=== PATIENT | female | born 1995 | race Caucasian/White ===

== ENCOUNTER 2024-11-23 02:43 | Day surgery (SDC) | payer OTHER, SELFPAY ==
[2024-11-10 13:49] VITALS: BMI 28.1
--- OUTSIDE RECORDS SUMMARY | 2024-11-23 02:46 | XMS_ITS | Clinical Summary ---
Author Organization [facility] [address] Address [address] [place] [address] Phone Care Team Providers Care Housekeeper/Laundry Assistant Name Role Phone Christina Wright PATROL DRIVER Primary Care Provider [phone] Allergies No known active allergies Medications clindamycin (CLINDAGEL) 1 % gel APPLY AA BID 4 9 Active norgestimate-ethi nyl estradioL (ORTHO-CYCLEN) 0.25-35 mg-mcg per tabletIndications :Oral contraceptive pill surveillance Take 1 tablet by mouth daily 84 tablet 4 3 Active Additional Information Patient not taking.Reported on 09/15/2023 metroNIDAZOLE (METROGEL) 0.75 % (37.5mg/5 gram) vaginal gelIndications:Ba cterial Vaginosis APPLY VAGINALLY EVERY NIGHT FOR 5 NIGHTS 70 g 3 Active Additional Information Patient not taking.Reported on 09/15/2023 Active Problems Problem Noted Date Diagnosed Date Obesity (BMI 30-39.9) 02/13/2018 Dysmenorrhea 02/11/2013 Surgical History Surgery Date Site/Laterality Comments SOFT TISSUE CYST EXCISION 04/14/2009 - 04/13/2010 Cheek Family History Medical History Relation Name Comments Heart attack Maternal Grandfather Hypertension Maternal Grandfather Breast cancer Maternal Grandmother Breast cancer Other 1 Breast Cancer - (Added by TW Conv) Heart disease Other 2 Heart Disease - (Added by TW Conv) Hypertension Other 3 Hypertension - (Added by TW Conv) Stroke Other 4 Stroke Syndrome - (Added by TW Conv) Relation Name Status Comments Maternal Grandfather Maternal Grandmother Other 1 Other 2 Other 3 Other 4 Social History Tobacco Use Types Packs/Day Years Used Date Smoking Tobacco: Never Smokeless Tobacco: Never Tobacco Cessation:Counseling Given: Not Answered Alcohol Use Standard Drinks/Week Comments Yes 5 (1 standard drink = 0.6 oz pur e alcohol) Occasionally Comments No Sex and Gender Information Value Date Recorded Sex Assigned at Not on file 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 Gender Identity Not on file Sexual Orientation Not on file 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 Not on file Not on file No t on file Obstetrics History Para Term AB IAB SAB Ectopic Multiple Livin g Live Births 0 0 0 0 0 0 0 0 0 0 0 Last Filed Vital Signs Vital Sign Reading Time Taken Comments Blood Pressure 121/73 11/13/2023 3:32 PM CDT Pulse 78 11/13/2023 3:32 PM CDT Temperature 36.6 C (97.8 F) 11/13/2023 3:32 PM CDT Respiratory Rate 20 11/13/2023 3:32 PM CDT Oxygen Saturation 98% 11/13/2023 3:32 PM CDT Inhaled Oxygen Concentration - - Weight 86.2 kg (190 lb) 11/13/2023 3:32 PM CDT Height 175.3 cm (5' 9) 11/13/2023 3:32 PM CDT Body Mass Index 28.06 11/13/2023 3:32 PM CDT Plan of Treatment Health Maintenance Due Date Last Done Comments Depression Screening 1995 Hepatitis C Screening 1995 DTaP/Tdap/Td Vaccine (1 - Tdap) 2008 Varicella Vaccines (1 of 2 - 13+ 2-dose series) 2010 Hepatitis B Screening 2015 Covid-19 Vaccine ( season) 2023 11/28/2020, 11/07/2020 HPV Vaccines (1 - 3-dose SCDM series) 2024 Cervical Cancer Screening 09/14/20242023, 04/27/2021, 03/15/2019 Regular Well Visit/Exam 18-64 09/14/2024 09/15/2023, 07/09/2022, 04/27/2021, Additional history exists Influenza Vaccine (#1) 2024 Pneumococcal vaccine <65 Aged Out No longer eligible based on patient's age to complete this topic Procedures Procedure Name Priority Date/Time Associated Diagnosis Comments PAP WITH REFLEX TO HIGH RISK HPV Routine 09/15/2023 11:01 AM CDT Screening for malignant neoplasm of the cervix from Last 3 Months or Most Recently Relevant to Health Maintenance Results * Pap with reflex to High Risk HPV and Genotyping (Cytology Component) (09/15/2023 11:01 AM CDT) Thin prep (Pap test) 09/15/2023 11:01 AM CDT 09/15/2023 11:01 AM CDT Narrative PATHOLOGY CH - 09/17/2023 12:28 PM CDT [facility] Department of Pathology [address] [place], [place] [id number] Final Report Note to Patients: This report may contain a detailed description of human tissue sent by a health care provider to the laboratory for pathologic evaluation. The content of this report is essential for diagnosis and may provide important critical findings. This information may be unfamiliar to patients to review without a medical professional present. It is advised that the patient review this report in the presence of a health care provider who can answer questions and explain the details. Patient Name: JUANITA LORENZO Address: [address] [place] [address] Gender: F : 1995 (Age: 28) Service: Location: [facility] : [id number] [place] [facility] #: [id number] Patient Type: CRITICAL ACCESS HOSPITAL SPECIMEN Taken: 09/15/2023 Received: 09/15/2023 Accessioned:: 09/16/2023 Reported: 09/17/2023 Physician(s): MD Bushra Paul MD Diagnosis: SOURCE OF SPECIMEN Imaged Thinprep Pap Test w/ Reflex HPV - Explosive Ordnance Specialist Cytologic Material: STATEMENT OF ADEQUACY - Specimen satisfactory for interpretation; endocervical/transformation zone component absent or insufficient GENERAL CATEGORIZATION: - Negative for intraepithelial lesion or malignancy ALTON Loyola(ASCP) Report Electronically Reviewed and Signed Out By ALTON Loyola(ASCP) 09/17/2023 12:28:54Specimen(s) Received: A: Imaged Thinprep Pap Test w/ Reflex HPV - Explosive Ordnance Specialist Cytologic Material Clinical History: Last Menstrual Period: 09/01/23 The Pap test is a screening test used to aid in the detection of cervical cancer and its precursors. It should not be the sole means by which malignant and premalignant lesions are diagnosed. Both false negative and false positive results may occur. It also has poor sensitivity for the detection of endometrial lesions and should not be used to evaluate suspected endometrial abnormalities. For these reasons it is most important to obtain Pap tests at regular intervals. The performance characteristics of some immunohistochemical stains, fluorescence in-situ hybridization tests and immunophenotyping by flow cytometry cited in this report (if any) were determined by the Surgical Pathology Department at [facility] as part of an ongoing quality assurance auditor program and in compliance with federally mandated regulations drawn from the Clinical Laboratory Improvement Act of 1988 (CLIA '88). Some of these tests rely on the use of analyte specific reagents and are subject to specific labeling requirements by the US Food and Drug Administration. Such diagnostic tests may only be performed in a facility that is certified by the Department of Health and Human Services as a high complexity laboratory under CLIA '88. The FDA has determined that such clearance or approval is not necessary. This test is used for clinical purposes. It should not be regarded as investigational or for research. Nevertheless, federal rules concerning the medical use of analyte specific reagents require that the following disclaimer be attached to the report: This test was developed and its performance characteristics determined by the Surgical Pathology Department [facility]. It has not been cleared or approved by the U. S. Food and Drug Administration. Bushra Anaya MD LAB CYTOLOGY ORDERABL ES Final Result PATHOLOGY [address] [place] [address] from Last 3 Months or Most Recently Relevant to Health Maintenance Insurance [employer] OPEN ACCESS CIG ALLEGIANCE Care Teams Housekeeper/Laundry Assistant Relationship Specialty Start Date End Date Christina Wright NP PCP - General Electrician Elevator Maintenance 08/02/24
--- OUTSIDE RECORDS SUMMARY | 2024-11-23 02:46 | XMS_ITS | Clinical Summary ---
Author Organization [facility] [email or web address] [place] Address [address] [place] [address] Care Team Providers Care Accounts Manager Name Role Phone Unavailable Primary Care Provider Unavailabl e Allergies No known active allergies Medications hydrocortisone (PROCTOZONE-HC) 2.5 % cream with perineal applicatorIndica tions:Rectal bleeding Insert by rectum 3 times daily as needed for Hemorrhoids . 30 Gram 07/13/2024 Active Active Problems Problem Noted Date Diagnosed Date Constipation 09/11/2023 Rectal bleeding 09/11/2023 Fear of needles 09/11/2023 Overview (09/11/2023): declines health screenings. Encounters Date Type Department Care Team Description 11/17/2024 External Device Data [facility] ABSTRACTION Provider, Abstract 11/16/2024 External Device Data [facility] ABSTRACTION Provider, Abstract 10/27/2024 External Device Data [facility] ABSTRACTION Provider, Abstract 10/26/2024 External Device Data [facility]STRACTION Provider, Abstract 10/12/2024 External Device Data [facility]STRACTION Provider, Abstract from Last 3 Months Immunizations Immunization Administration Dates Next Due (PFIZER)(12 YR UP) COVID-19 VACCINE - EMERGENCY USE AUTHORIZATION, MRNA, [id number](PF) 30 MCG/0.3 ML IM SUSP 11/28/2020,11/07/2020 Family History Medical History Relation Name Comments No Known Problems Father Parkinson's Disease Maternal Grandfather Breast Cancer Maternal Grandmother Anemia Mother Diabetes Mother Cancer Paternal Grandfather COPD Paternal Grandmother No Known Problems Sister Relation Name Status Comments Father Alive Maternal Grandfather Maternal Grandmother Alive Mother Alive Paternal Grandfather Paternal Grandmother Alive Sister Alive Social History Tobacco Use Types Packs/Day Years Used Date Smoking Tobacco: Never Smokeless Tobacco: Never Alcohol Use Standard Drinks/Week Comments Yes 0 (1 standard drink = 0.6 oz pur e alcohol) occassionally Comments No Sex and Gender Information Value Date Recorded Sex Assigned at Not on file Legal Sex Female 10:28 AM CDT Gender Identity Not on file Sexual Orientation Not on file Last Filed Vital Signs Vital Sign Reading Time Taken Comments Blood Pressure 124/78 07/13/2024 1:24 PM CDT Pulse 57 07/13/2024 1:24 PM CDT Temperature 36.7 C (98 F) 07/13/2024 1:24 PM CDT Respiratory Rate 16 07/13/2024 1:24 PM CDT Oxygen Saturation 98% 07/13/2024 1:24 PM CDT Inhaled Oxygen Concentration - - Weight 88 kg (194 lb) 07/13/2024 1:24 PM CDT Height 172.7 cm (5' 8) 07/13/2024 1:24 PM CDT Body Mass Index 29.5 07/13/2024 1:24 PM CDT Plan of Treatment Health Maintenance Due Date Last Done Comments HPV VACCINES (1 - 3-dose series) 2012 DTAP/TDAP/TD VACCINES (1 - Tdap) 2016 HEPATITIS B VACCINES (1 of 3 - 19+ 3-dose series) 2016 HPV/Cotest (21-29) 2018 COVID-19 Vaccine ( - 2023-2 5 season) 2023 11/28/2020, 11/07/2020 INFLUENZA VACCINE (#1) 2024 12/28/2020 CERVICAL CANCER SCREENING 09/14/2026 PAP SMEAR 09/14/2026 09/15/2023, 04/2020 (Previously completed) [place] [address] [place] [address] OPEN ACCESS HMO [facility] OPEN ACCESS HMO
--- OUTSIDE RECORDS SUMMARY | 2024-11-23 02:46 | XMS_ITS | Patient Health Record ---
Author Organization [facility] [place] ([address]) Address [address] [place] [address] Care Team Providers Care Stone Repairer Name Role Phone Dr. Patsy Zavala Primary Care Provider Riky Álvarez Unavailable [phone] Reason For Referral No Information Medications Medication SIG (Take, Route, Fr equency, Duration) Notes Start Date End Date Status Auvi-Q 0.3 MG/0.3ML 0.3 mg intramuscular ly once; Duration: 1 dose(s) 11/03/2017 Active DOXYCYCLINE hyclate 100 mg 1 cap(s) orally 2 times a day Active AUVI -Q 0.3 mg 0.3 mg intramuscular ly once; Duration: 1 dose(s) 11/03/2017 Active Doxycycline Hyclate 100 MG 1 cap(s) orally 2 times a day Active Social History Tobacco Use: Social History Observation Description Date Details (start date - stop date) Never Smoker NA - NA Smoking Smart Form: Question Answer Notes Are you a: never smoker Problems Problem Type SNOMED Code ICD Code Onset Dates Problem Status W/U Status Risk Notes Problem Idiopathic urticaria (19603414) Idiopathic urticaria (L50.1) Active confirmed Plan Of Treatment No Information Insurance Providers Payer Name Payer Address Payer Phone Subscriber Number Group Number Insured Name Patient Relationship to Insured Coverage Start Date Coverage End Date [facility] [address] [address] [place] [address] [id number] Frida Sam Child - Insured has Financial Responsibility
--- OUTSIDE RECORDS SUMMARY | 2024-11-23 02:47 | XMS_ITS ---
Author Organization [facility] [place] ([address]) Address [address] [place] [address] Care Team Providers Care Chief Wellness Officer Name Role Phone Dr. Patsy Zavala Primary Care Provider Riky Álvarez Unavailable [phone] [facility], Provider Unavailable Unavailab le [facility] Conversion Encounter Medications Medication SIG (Take, Route, Fr equency, Duration) Notes Start Date End Date Status Auvi-Q 0.3 MG/0.3ML 0.3 mg intramuscular ly once; Duration: 1 dose(s) 11/03/2017 Active Doxycycline Hyclate 100 MG 1 cap(s) orally 2 times a day Active Encounters Encounter Location Date Provider Diagnosis [address] [address] 09/27/2023 Provider [facility] Idiopathic urticaria L50.1 Assessments Encounter Date Diagnosis (ICD Code) Assessment Notes Treatment Notes Treatment Clinical Notes Section Notes 09/27/2023 Idiopathic urticaria (ICD-10 - L50.1) Plan Of Treatment Medication Medication Name Sig Start Date Stop Date Notes Auvi-Q 0.3 MG/0.3ML 0.3 mg intramuscular ly once; Duration: 1 dose(s) 11/03/2017 Progress Notes * Juanita LORENZODOB:09/1995 (29 yo F)Acc No.[id number]:09/27/2023 Patient: Juanita LAINEZ Provider: Katerine Lam :1995 A ge:28 Y S ex:Female Date:09/27/2023 Address:[facility], [address] Pcp:Dr. Patsy Zavala Subjective: * Chief Complaints: * 1 . [facility] To [facility] Conversion Encounter. * Medical History: * Medications: T aking Doxycycline Hyclate 100 MG Capsule 1 cap(s) orally 2 times a day Objective: * Vitals: Assessment: * Assessment: 1. I diopathic urticaria - L50.1 (Primary) Plan: * Treatment: * Billing Information: * Visit Code: * Procedure Codes: * Electronic signature of Prov hamzahr [facility] on 11/23/2024 at 02:46 AM CDT Sign off status: Pending * Provider: Katerine Lam Date: 09/27/2023 Generated for Ju leyva/Freedom/Chanasmitting on: 11/23/2024 02:46 AM CDT
[2024-11-23 08:45] VITALS: BP 108/53; PULSE 48; RESP 20; TEMP 36.7; O2SAT 99; BMI 28.6
[2024-11-23] MEDS: LACTATED RINGERS 1,000 ML 150 ML IV CONT (08:59)
[2024-11-23 09:03] LABS: BEDSIDEPREGUCG Negative (Negative)
--- NOTE | 2024-11-23 09:07 | WPDANESEPPF ---
Anes - Initial Pre Proc Eval Procedure: Operation Date: 11/23/24 10:00 Proposed Procedures p Flexible Sigmoidoscopy - Puma Miller MD s [facility] Hemorrhoid Treatment - Puma Miller MD Date/Time: 11/23/24 09:07 Surgeon: Puma Miller MD Pre Op Diagnosis: Hemorrhage of anus and rectum Patient Data Age: 29 Gender: F Height: 1.75 m Weight: 88.1 kg Last Vital Signs Temp 98.1 F 11/23/24 08:45 Pulse 48 L 11/23/24 08:45 Resp 20 11/23/24 08:45 BP 108/53 L 11/23/24 08:45 Pulse Ox 99 11/23/24 08:45 O2 Del Method Room Air 11/23/24 08:45 Allergies Allergy/AdvReac Type Severity Reaction Status Date / Time No Known Allergies Allergy Verified 11/23/24 08:45 Home Medications ?Medication ?Instructions ?Recorded ?Confirmed ?Type No Home Medications 08/12/24 11/10/24 History Laboratory Tests 11/23/24 09:00 POC Urine HCG, Qual Negative (Negative) Patient hx anesthesia problems: none Family hx anesthesia problems: none Results Review: All pre-operative results and documents have been reviewed as part of the pre-operative evaluation. [facility] Past Medical History Medical History Bright red blood per rectum Social History Social History Smoking status: Never smoker Alcohol intake: current Substance use: never Substance use type: does not use Anes - Eval Final PreProcedure Day of Procedure 11/23/24 09:07 Patient weight: normal Lungs: normal air movement Airway: Mallampati scale class II Neurological: alert and oriented Last oral intake: >/= 8 hours ASA classification: I Emergent: no Anesthetic plan: proceed Anesthesia type and monitoring: general GIVS and standard monitoring Results Review: All pre-operative results and documents have been reviewed as part of the pre-operative evaluation. Healthy, pt w blood in stool, now for flex sig. Informed Consent: The patient's anesthetic plan and its attendant risks and benefits were discussed with the patient/family/POA. Questions were solicited and answers provided to the satisfaction of the patient/family/POA.
--- NOTE | 2024-11-23 10:12 | PM.HPGS ---
History of Present Illness History of Present Illness Consent: Risks, benefits, and alternatives have been discussed and questions answered. Patient agrees to proceed with procedure. Chief complaint: Hemorrhage of anus and rectum Narrative: Juanita Hardy is a 29 year old female here for sigmoidoscopy because intermittent rectal bleeding. Review of Systems Review of Systems: All systems reviewed & are unremarkable except as noted in HPI and below PMFSH Past Medical History Medical History Bright red blood per rectum Social History Social History Smoking status: Never smoker Alcohol intake: current Substance use: never Substance use type: does not use Meds Home Medications and Allergies Home Medications ?Medication ?Instructions ?Recorded ?Confirmed ?Type No Home Medications 08/12/24 11/10/24 History Allergies Allergy/AdvReac Type Severity Reaction Status Date / Time No Known Allergies Allergy Verified 11/23/24 08:45 Vital Signs Vital Signs - 24 hr 11/23/24 08:45 Temperature 98.1 F Pulse Rate 48 L Respiratory Rate 20 Blood Pressure 108/53 L Pulse Oximetry 99 Oxygen Delivery Room Air Exam Const: General: comfortable and no acute distress HENMT: Face/Nose/Sinus: Normal nares present Eyes: General: appearance normal, both eyes and all related structures Neck: Neck: no JVD Resp: Auscultation: clear to auscultation bilaterally Cardio: Rate: regular rate Rhythm: regular rhythm GI: Inspection: non-distended GI Palp: Yes Soft to palpation Skin: General skin exam: normal color Neuro: General: gait normal Speech: normal speech Extrem: General: normal to inspection Psych: Mental Status: mental status grossly normal Assessment and Plan Assessment and plan (1) Bright red blood per rectum: Code(s): K62.5 - Hemorrhage of anus and rectum Status: Acute Assessment and Plan: sigmoidoscopy if we find internal hemorrhoids then will assess if also needs IRC treatment
[2024-11-23 10:26] VITALS: BP 110/64; PULSE 52; RESP 15; O2SAT 94
[2024-11-23 10:36] VITALS: BP 118/70; PULSE 53; RESP 15; O2SAT 100
[2024-11-23 10:46] VITALS: BP 118/71; PULSE 52; RESP 14; O2SAT 100
== END 2024-11-23 10:52 | disposition home or self-care (01) ==
PROVIDERS: Anesthesiology; PCP Nurse Practitioner Adult Health; Referring Provider Nurse Practitioner Family; Visit Provider Internal Medicine Gastroenterology
PROC: 0DJD8ZZ Inspection of Lower Intestinal Tract, Via Natural or Artificial Opening Endoscopic (ICD-10-PCS; CPT 45330; principal; 2024-11-23 10:00)
DX: K92.1 Melena (principal)
CPT/HCPCS: 45330; J2003; J2704; J7120